=== PATIENT | male | born 1980 | race African-American/Black ===

== ENCOUNTER 2020-02-14 23:40 | Emergency (ER) | payer OTHER ==
[~2020-02-14] VITALS: Ht 170.2 cm; Wt 86.8 kg
[2020-02-15] MEDS ORDERED: MOBIC15 MG PO (00:16)
[2020-02-15] MEDS ORDERED: KEFLEX500 M2 PO (00:16)
[2020-02-15 00:29] VITALS: BP 167/95
== END 2020-02-15 00:25 | disposition home or self-care (01) ==
LOC: ER 23:40
DX: L03.011 Cellulitis of right finger (principal)

== ENCOUNTER 2021-02-07 18:47 | Emergency (ER) | payer OTHER ==
[~2021-02-07] VITALS: Ht 175.3 cm; Wt 83.9 kg
[~2021-02-07 18:47] MED LIST: KEFLEX500 M2 PO; MOBIC15 MG PO
[2021-02-07] MEDS ORDERED: CORTISPORIN OTI10 ML OTIC (19:56)
[2021-02-07] MEDS ORDERED: AMOXICILLIN 50500 MG PO (19:56)
[2021-02-07 20:07] VITALS: BP 137/88
== END 2021-02-07 20:07 | disposition home or self-care (01) ==
LOC: ER 18:47
DX: H60.93 Unspecified otitis externa, bilateral (principal); H66.41 Suppurative otitis media, unspecified, right ear; Z79.2 Long term (current) use of antibiotics; Z79.899 Other long term (current) drug therapy